=== PATIENT | male | born 1960 | race Caucasian/White ===

== ENCOUNTER 2016-08-12 17:10 | Emergency (ER) | payer MEDICARE, OTHER ==
[~2016-08-12] VITALS: Ht 170.2 cm; Wt 63.6 kg
[~2016-08-12 17:10] MED LIST: ALBU8.5H2 INHALATION; ALPR1TAB7 PO; CYCL5TAB PO; DABI150C PO; Hydrocodone/Acetaminophen PO; IPRA3AMP IH; LOSA1TAB69 PO; OMEP20TA24 PO; WARF2.5T82 PO
[2016-08-12 17:13] VITALS: BP 100/69; PULSE 66; RESP 14; O2SAT 95
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
[2016-08-12] MEDS ORDERED: 0.9% Sodium Chloride 500 ML IV ONE ×2 (18:11→20:05)
[2016-08-12 18:27] LABS: BASOPHILS % (AUTO) 0.2 % (0-3); EOSINOPHILS % (AUTO) 1.3 % (0-5); MONOCYTES % (AUTO) 10.4 % (4-12); Mean Corpuscular Hemoglobin 33.9 pg (27.0-35.0); Mean Corpuscular Volume 94.6 fL (81-100); NEUTROPHILS % (AUTO) 67.9 % (40-74); Platelet Count 229 bil/L (150-400)
[2016-08-12 18:46] LABS: INR 0.92 ratio
--- NOTE | 2016-08-12 19:02 | DRSVH ---
PROCEDURE: X-RAY CHEST, TWO VIEWS ([id number]) INDICATIONS: chest pain TECHNIQUE: 2 views of the chest were acquired. COMPARISON: [facility], CR, XR CHEST 1VW (PORTABLE), 06/07/2015, 20:29. FINDINGS: Surgical changes and devices: None. Lungs and pleura: No pleural effusions or pneumothorax. Lungs are clear. Mediastinum: Mediastinal contours are normal. Heart size is normal. Bones and chest wall: No suspicious bony abnormalities. Soft tissues appear unremarkable. IMPRESSION: Negative chest Dictated by: Isaac Conner M.D. on 08/12/2016 at 18:59 Approved by: Isaac Conner M.D. on 08/12/2016 at 19:00
[2016-08-12 19:03] LABS: Magnesium 2.1 mg/dL (1.6-2.6)
[2016-08-12 19:15] LABS: TROPONIN T < 0.010 ug/L (0.0-0.011)
[2016-08-12] MEDS ORDERED: Ondansetron 2 mg/mL 2 mL Inj IVPUSH ONE (20:05)
--- NOTE | 2016-08-12 20:34 | DRSVH ---
PROCEDURE: CT ANGIO CHEST PULMONARY EMBOLISM ([id number]) INDICATIONS: hx of DVT, not anticopagulated, cp TECHNIQUE: After the administration of intravenous contrast, 2 mm thick sections acquired from the pulmonary api florencio to the posterior costophrenic angles. 3-dimensional maximum intensity projection (MIP) coronal a nd sagittal reformats were then acquired through the thorax. For radiation dose reduction, the follo wing was used: automated exposure control, adjustment of mA and/or kV according to patient size. COMPARISON: [facility], CT, CT ANGIO CHEST PE, 06/07/2015, 22:07. FINDINGS: Image quality: Excellent. Pulmonary arteries: Pulmonary arteries are normal in size, and demonstrate no intraluminal filling d efects to suggest central pulmonary embolism. Lungs and pleura: Patchy consolidation in the right middle lobe. No pneumothorax or pleural effusion. Mild upper lobe predominant centrilobular emphysema. Airways appear grossly patent Mediastinum: Heart size is normal, without pericardial effusion. No mediastinal or hilar adenopathy . Thoracic aorta is normal in caliber and enhancement. Esophagus is normal in caliber, without hiat al hernia. Bones and chest wall: No suspicious bony lesions. Ribs and thoracic spine appear intact throughout. Thyroid gland unremarkable. No axillary or supraclavicular adenopathy. Abdomen: Visualized upper abdominal solid organs appear normal in the early arterial phase of enhanc ement. IMPRESSION: No evidence of pulmonary embolism. Right middle lobe patchy consolidation suggesting pneumonia and/or aspiration Recommend clinical correlation. Dictated by: Isaac Conner M.D. on 08/12/2016 at 20:29 Approved by: Isaac Conner M.D. on 08/12/2016 at 20:32
[2016-08-12] MEDS ORDERED: ONDA4TAB12 PO (21:16)
[2016-08-12 21:37] VITALS: BP 125/77; PULSE 61; RESP 24; O2SAT 97
== END 2016-08-12 21:37 | disposition left against medical advice (07) ==
LOC: SED 17:10
DX: R07.9 Chest pain, unspecified (principal); I10 Essential (primary) hypertension; J44.9 Chronic obstructive pulmonary disease, unspecified; Z79.01 Long term (current) use of anticoagulants; F17.200 Nicotine dependence, unspecified, uncomplicated
CPT/HCPCS: 36415; 71020; 71275; 80053; 83735; 83880; 84484; 85025; 85610; 85730; 93005; 96374; 99285; J2405; J7030; Q9967